=== PATIENT | male | born 1990 | race Caucasian/White ===

== ENCOUNTER 2022-03-29 16:33 | Emergency (ER) | payer OTHER, SELFPAY ==
[2022-03-29] VITALS (21 sets, daily range): BP systolic 139–163; BP diastolic 82–104; PULSE 60–103; RESP 12–26; TEMP 37.5; O2SAT 94–100
--- NOTE | ~2022-03-29 | XR_ITS ---
EXAMINATION: XR chest 2V DATE: 03/29/2022 17:07 INDICATION: Central chest pain. Shortness of breath. TECHNIQUE: Frontal and lateral views of the chest were obtained. COMPARISON: None. FINDINGS: There is no pneumonia, pleural effusion, or pneumothorax. The heart size is normal. There i s mild chronic anterior wedging of multiple vertebral bodies. IMPRESSION: 1. No acute cardiopulmonary disease. Reviewed, dictated and finalized at location A. TUBE [employer]TER
--- NOTE | 2022-03-29 16:35 | ECG_ITS ---
Measurements Intervals Walker Rate: 83 P: 43 SD: 171 QRS: -22 QRSD: 103 T: 56 QT: 342 QTc: 403 Interpretive Statements SINUS RHYTHM NORMAL ECG NO PREVIOUS ECG AVAILABLE FOR COMPARISON Electronically Signed On 03-29-2022 16:54:25 [employer]OD TECHNOLOG[employer] by Andrae Moody D.O.
[2022-03-29 17:44] LABS: Basophils Absolute Auto 0.1 K/mm3 (0.0-0.1); Basophils Percent Auto 0.5 % (0.2-1.2); Eosinophils Absolute Auto 0.2 K/mm3 (0-0.3); Eosinophils Percent Auto 1.5 % (0-4.4); Hematocrit 42.2 % (42.0-52.0); Hemoglobin 14.2 g/dL (14.0-18.0); Immature Granulocyte Absolute 0.03 K/mm3 (0.00-0.031); Immature Granulocyte Percent A 0.3 % (0-0.5); Lymphocytes Absolute Auto 2.39 K/mm3 (0.9-3.2); Lymphocytes Percent Auto 21.4 % (18.3-44.2); Mean Corpuscular HGB Conc 33.6 g/dl (32-36); Mean Corpuscular Hemoglobin 28.9 pg (26-34); Mean Corpuscular Volume 85.9 fl (80-100); Mean Platelet Volume 9.3 fl (7.4-10.4); Monocytes Absolute Auto 0.9 K/mm3 (0.1-0.6); Monocytes Percent Auto 8.2 % (2.6-8.5); Neutrophils Absolute Auto 7.6 K/mm3 (1.3-6.7); Neutrophils Percent Auto 68.1 % (45.5-73.1); Platelet Count Result 233 k/mm3 (150-375); Red Blood Count 4.91 M/mm3 (4.6-6.20); Red Cell Distribution Width 11.9 % (11.5-14.5); White Blood Count 11.2 K/mm3 (4.5-10.0)
[2022-03-29 17:54] LABS: INR 1.1; Prothrombin Time 13.4 Seconds (11.1-14.7)
[2022-03-29 17:55] LABS: Alanine Aminotransferase 36 U/L (6-50); Albumin Level 4.5 g/dL (3.5-5.1); Alkaline Phosphatase 71 U/L (38-126); Anion Gap 6 mmol/L (8-16); Aspartate Amino Transferase 31 U/L (17-59); Bilirubin,Total 0.4 mg/dL (0.2-1.3); Blood Urea Nitrogen 15 mg/dL (9-20); Carbon Dioxide 28 mmol/L (22-30); Chloride 106 mmol/L (98-107); Estimated Glomerular Filt Rate > 60; Glucose 90 mg/dL (65-110); Lipase 59 U/L (23-300); Partial Thromboplastin Time 26.8 SECONDS (22.3-36.8); Sodium 140 mmol/L (137-145)
[2022-03-29 18:09] LABS: Troponin I < 0.012 ng/mL (0.000-0.034)
--- NOTE | 2022-03-29 20:13 | ED.CHESTPAIN ---
HPI - Chest Pain General Chief Complaint: Chest Pain Stated Complaint: chest pain Time Seen by Provider: 03/29/22 19:51 Source: patient Mode of arrival: ambulatory Limitations: no limitations History of Present Illness HPI narrative: 31 years old white male presented to the ED with intermittent sharp pain at the right chest, worse during swallowing or moving certain way. He denies any fever, chills, nausea, vomiting or shortness of breath. Patient been working out lately, with a lot of lifting and stretching his chest muscle. Patient does not take medicine at home, does not smoke or drink or uses drugs. Related Data Allergies Allergy/AdvReac Type Severity Reaction Status Date / Time NKDA Allergy Mild Other Uncoded 03/29/22 20:06 Review of Systems Review of Systems: All systems reviewed & are unremarkable except as noted in HPI and below Exam Narrative: General appearance: Well-developed, well-nourished Skin: Normal color Head: Normocephalic, nontraumatic Eyes: Clear conjunctiva ENT: Oropharynx normal, ears normal, nose normal Neck: Supple, nontender Chest and respiratory: Airway patent, no respiratory distress, no accessory muscle use Heart: Regular rate/rhythm Abdomen: Soft, nontender, no organomegaly, quiet bowel sounds Vascular: Normal peripheral pulses, normal capillary refill. Musculoskeletal: Normal range of motion, nontender back Neurologic: Alert and oriented ?3, WELLNESS COACH is normal as tested, no gross motor deficit Course Reevaluation(s) Reevaluation #1: Currently patient is asymptomatic. Date: 03/29/22 Time: 21:04 Vital Signs Vital signs: Vital Signs Temperature 37.5 C 03/29/22 17:00 Pulse Rate 64 03/29/22 17:00 Respiratory Rate 20 03/29/22 17:00 Blood Pressure 162/104 H 03/29/22 17:00 Pulse Oximetry 95 03/29/22 17:00 Oxygen Delivery Room Air 03/29/22 17:00 Temperature 37.5 C 03/29/22 17:00 Pulse Rate 80 03/29/22 21:26 Respiratory Rate 16 03/29/22 21:26 Blood Pressure 153/92 H 03/29/22 21:26 Pulse Oximetry 98 03/29/22 21:26 Oxygen Delivery Room Air 03/29/22 17:00 MDM - Chest Pain MDM Narrative Medical decision making narrative: Patient is 31 years old white male presents with right chest pain, worse with certain movement, musculoskeletal is my concern. Patient blood pressure on arrival is 162/104. Patient is telling him that his blood pressure usually high when he goes to the doctor. Patient does not take medicine at home. Labs, EKG, chest x-ray ordered. Cardiac score is 1 Blood work-up showed no acute abnormality,, normal troponin x2 EKG normal sinus rhythm Chest x-ray, showed no acute abnormalities. Blood pressure went up to 170/110, and anxiety is a possibility. Patient received 5 mg of Lopressor IV x2, blood pressure went down to 140/85, few minutes later went up to 158/90. My plan to discharge patient on Lopressor 25 mg once a day until he see his family physician for further evaluation. Patient requested 2 days off work. The pt was discharged to home.the pt,s condition upon discharge was fair,education was provided to the pt in reference to the final impression,discharge study results,treatment,prognosis and need for follow up . Lab Data 03/29/22 17:35 03/29/22 17:35 Labs: Lab Results 03/29/22 03/29/22 03/29/22 Range/Units 17:35 17:35 17:35 WBC 11.2 H (4.5-10.0) K/mm3 RBC 4.91 (4.6-6.20) M/mm3 Hgb 14.2 (14.0-18.0) g/dL Hct 42.2 (42.0-52.0) % MCV 85.9 (80-100) fl MCH 28.9 (26-34) pg MCHC 33.6 (32-36) g/dl RDW 11.9 (11.5-14.5) % Plt Count 233 (150-375) k/mm3 MPV 9.3 (7.4-10.4) fl [facility]
[2022-03-29] MEDS: METOPROLOL TARTRATE INJ 5 MG/5 ML VIAL IV PUSH ×3 (20:24→21:01)
[2022-03-29 21:02] LABS: Troponin I < 0.012 ng/mL (0.000-0.034)
== END 2022-03-29 21:40 | disposition home or self-care (01) ==
PROVIDERS: Emergency Medicine; Emergency Provider Emergency Medicine; PCP Family Medicine
DX: R07.9 Chest pain, unspecified (principal); I10 Essential (primary) hypertension
CPT/HCPCS: 36415; 71046; 80053; 83690; 84484; 85025; 85610; 85730; 93005; 96374; 99284